=== PATIENT | female | born 1940 | race Caucasian/White ===

== ENCOUNTER → 2016-10-24 | Outpatient (CLI) | payer OTHER | LOC: FIMAGING 12:32 | PROVIDERS: ATTEND Internal Medicine | DX: Z12.31 Encounter for screening mammogram for malignant neoplasm of breast (principal); Z80.3 Family history of malignant neoplasm of breast | CPT/HCPCS: G0202 ==

== ENCOUNTER → 2016-11-25 | Outpatient (CLI) | payer OTHER | LOC: BMCIMAGING 10:50 | PROVIDERS: ATTEND Physician Assistant Medical | DX: Z13.820 Encounter for screening for osteoporosis (principal); M85.80 Other specified disorders of bone density and structure, unspecified site ==

== ENCOUNTER → 2017-03-25 | Outpatient (CLI) | payer OTHER | LOC: BMCLAB 08:47 | PROVIDERS: ATTEND Physician Assistant Medical | DX: R42 Dizziness and giddiness (principal) ==

== ENCOUNTER → 2017-10-28 | Outpatient (CLI) | payer OTHER | LOC: FIMAGING 10:03 | PROVIDERS: ATTEND Internal Medicine | DX: Z12.31 Encounter for screening mammogram for malignant neoplasm of breast (principal); Z80.3 Family history of malignant neoplasm of breast ==

== ENCOUNTER 2018-03-12 05:37 | Inpatient (IN) | payer OTHER ==
[2018-03-12] MEDS ORDERED: ACETAMINOPHEN 500 MG TAB PO ONE (05:43)
[2018-03-12] MEDS ORDERED: ceFAZolin 2 GM/DEXTROSE 100 ML IV ONE (05:43)
[2018-03-12] MEDS ORDERED: GABAPENTIN 300 MG CAP PO ONE (05:43)
[2018-03-12] MEDS ORDERED: LR 1,000 ML IV ONE (05:44)
[2018-03-12] MEDS ORDERED: BUPIVACAINE 0.25% 30 ML SDV ONE (06:24)
[2018-03-12] MEDS ORDERED: POVIDONE-IODINE 30 GM OINTTUBE TP ONE (06:24)
[2018-03-12] MEDS ORDERED: CHLORHEXIDINE GLUC HIBICLENS 118 ML BTL TP ONE (06:24)
[2018-03-12] MEDS ORDERED: EPINEPHrine 1 MG/ML INJ ONE (06:24)
[2018-03-12] MEDS ORDERED: THROMBIN (BOVINE) 20,000 UNIT VIAL TP ONE ×2 (06:24→09:05)
[2018-03-12] MEDS ORDERED: BACITRACIN ZINC 0.5 OZ OINTTUBE TP ONE (06:24)
[2018-03-12] MEDS ORDERED: BACITRACIN 50,000 UNITS/10 ML SYR IRR ONE (06:25)
--- NOTE | 2018-03-12 06:52 | PDHPUP ---
History & Physical Update H&P update statement: This history and physical update is based on an assessment of the patient which was completed after admission or registration (within 24 hours), but prior to the surgery/procedure. H&P update: H&P reviewed & patient examined, no change in patient's condition since H&P completed
--- NOTE | 2018-03-12 07:06 | PDANEPAE ---
ANE History of Present Illness C$-C7 A/P lif for DJD ANE Past Medical History - Cardiovascular History Hx Hypertension: No Hx Arrhythmias: No Hx Chest Pain: No Hx Coronary Artery / Peripheral Vascular Disease: No Hx CHF / Valvular Disease: No Hx Palpitations: No - Pulmonary History Hx COPD: No Hx Asthma/Reactive Airway Disease: No Hx Recent Upper Respiratory Infection: No Hx Oxygen in Use at Home: No Hx Sleep Apnea: No Sleep Apnea Screening Result - Last Documented: Negative - Neurologic History Hx Cerebrovascular Accident: No Hx Seizures: No Hx Dementia: No - Endocrine History Hx Diabetes: No - Renal History Hx Renal Disorders: No - Liver History Hx Hepatic Disorders: No - Neurological & Psychiatric Hx Hx Neurological and Psychiatric Disorders: No - Cancer History Hx Cancer: No - Congenital Disorder History Hx Congenital Disorders: No - GI History Hx Gastrointestinal Disorders: No - Other Health History Other Health History: NEG - Surgical History Prior Surgeries: BACK SURGERY- LUMBAR LAMINECTOMY. EPIDURAL INJS FOR PAIN. R SHOULDER. RTC TREVIN X3. CATARACTS. BUNIONECTOMY. CARPAL TUNNEL TREVIN ANE Review of Systems Review of Systems: - Exercise capacity METS (RN): 4 METS ANE Patient History - Allergies Allergies/Adverse Reactions: No Known Allergies Allergy (Verified 02/11/18 11:23) - Home Medications Home Medications: Ascorbic Acid [Vitamin C 500 mg (*)] 1,000 mg PO DAILY 02/11/18 [Last Taken ] Atorvastatin Calcium [Lipitor 20 mg (*)] 20 mg PO HS 02/11/18 [Last Taken ] Calcium Carbonate [Oyster Shell Calcium 500 mg (*)] 500 mg PO DAILY 02/11/18 [ Last Taken 03/11/18] Cholecalciferol Vit D3 [Vitamin D3 (*)] 1,000 units PO DAILY 02/11/18 [Last Taken 03/02/18] Herbals/Supplements -Info Only 1 ea PO DAILY 02/11/18 [Last Taken 03/11/18] Ibuprofen [Motrin (*)] 200 mg PO HS PRN 02/11/18 [Last Taken 03/02/18] Melatonin [Melatonin 3 MG (*)] 3 mg PO HS PRN 02/11/18 [Last Taken 03/11/18] Multivitamins [Multivitamin (*)] 1 each PO DAILY 02/11/18 [Last Taken 03/02/18] - NPO status NPO Since - Liquids (Date): 03/11/18 NPO Since - Liquids (Time): 19:00 NPO Since - Solids (Date): 03/11/18 NPO Since - Solids (Time): 19:00 - Smoking Hx Smoking Status: Never smoked ANE Labs/Vital Signs - Vital Signs Blood Pressure: 119/65 Heart Rate: 78 Respiratory Rate: 16 O2 Sat (%): 96 Height: 162.56 cm Weight: 68.039 kg ANE Physical Exam - Airway Neck exam: FROM Mallampati Score: Class 1 Mouth exam: normal dental/mouth exam - Pulmonary Pulmonary: no respiratory distress, no rales or rhonchi - Cardiovascular Cardiovascular: regular rate and rhythym, no murmur, rub, or gallop - ASA Status ASA Status: II ANE Anesthesia Plan Anesthesia Plan: general endotracheal anesthesia Total IV Anesthesia: Yes
[2018-03-12] MEDS ORDERED: MIDAZOLAM 2 MG/2 ML VIAL IVP ONE (07:07)
[2018-03-12] MEDS ORDERED: MIDAZOLAM 2 MG/2 ML VIAL ONE (07:08)
[2018-03-12] MEDS ORDERED: REMIFENTANIL HCL 1 MG VIAL ONE ×3 (07:10→08:42)
[2018-03-12] MEDS ORDERED: PROPOFOL/EMULSION 500 MG/50 ML BOTTLE IV ONE ×6 (07:10→10:23)
[2018-03-12] MEDS ORDERED: PROPOFOL 200 MG/20 ML VIAL ONE (07:19)
[2018-03-12] MEDS ORDERED: TRANEXAMIC ACID 1,000 MG/10 ML VIAL ONE (08:56)
[2018-03-12] MEDS ORDERED: SURGIFLO MATRIX KIT WITH THROMBIN 8 ML TP ONE (08:57)
--- NOTE | 2018-03-12 10:44 | GOP ---
DATE OF OPERATION: 03/12/2018 SURGEON: Turner Rivas MD NEUROSURGEON: Turner Rivas MD. SOLE LAYER HAND: Bronson Marquez PA-C. ANESTHESIA: General endotracheal. 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 Progressive myelopathic symptoms. POSTOPERATIVE DIAGNOSIS: Multilevel cervical spondylitic myelopathy with severe cervical central can al stenosis and spinal cord compression. Progressive myelopathic symptoms. PROCEDURE PERFORMED: Complete C4-5, C5-6, and C6-7 anterior cervical diskectomy and arthrodesis with 3 structural polyetheretherketone interbody spacers and local autograft. Partial C5 and C6 vertebra l corpectomies. Placement of a 63 mm LnK CastleLoc-P anterior cervical plate from C4-C7 with self-dr illing screws. Use of intraoperative microscopy and fluoroscopy. FINDINGS: ESTIMATED BLOOD LOSS: Estimated 50 cc. INDICATIONS: The patient is a 77-year-old woman with progressive myelopathic symptoms and multilevel cervical spondylosis, stenosis, and spinal cord compression. She presents now for anterior and post erior cervical decompression and stabilization. DESCRIPTION OF PROCEDURE: After informed consent was obtained, the patient was taken to the operatin g room and placed in the supine position with the head in the halter retractor system. The anterior cervical region was prepped and draped in sterile fashion. After fluoroscopic localization of the co rrect level, the subcutaneous and intramuscular tissues were infiltrated with local anesthesia. A ho rizontal incision was then created at the level of the C5-6 interspace. This was carried through the platysmal layer using the monopolar electrocautery and carried in the avascular plane between the st ernocleidomastoid and carotid sheath laterally and the strap muscles, trachea, and esophagus medially down to the prevertebral fascia which was carefully incised with Metzenbaum scissors. The C4-5, C5- 6, and C6-7 interspaces were identified and re-verified using intraoperative fluoroscopy. The large osteophytes were carefully removed and harvested for local autograft. The [place] distraction pins we re carefully inserted, first at C4-5, then at C5-6, and then C6-7 during which time a slight amount o f distraction was created across each interspace and complete diskectomies were performed with remova l of the posterior longitudinal ligament and bilateral foraminotomies were performed at each level. There were large osteophytes projecting posteriorly as they were anterior and these were carefully re moved and drilled out and there was significant irregularity in the disk spaces which also required a n extensive amount of drilling. Due to the significant amount of drilling of the superior and inferi or endplates of C5 and C6, approximately 50% of the vertebral bodies were removed for partial C5 and C6 vertebral corpectomies. Following excellent decompression at each of the 3 interspaces structural PEEK interbody spacers were placed at C4-5, C5-6, and C6-7 and the distraction was removed. An appr opriately sized 63 mm LnK CastleLoc-P anterior cervical plate was then placed and secured with self-d rilling screws under fluoroscopic image guidance from C4 to C7. Following re-verification of good po sition of the plate, screws, and interbody spacers using biplanar fluoroscopy, the locking mechanisms were engaged. The wound was copiously irrigated and re-infiltrated with local anesthesia. The mark ining local autograft was gently packed into the anterior hole of the plate at the C4-5 and C6-7 leve ls. A drain was placed and the wound was closed in a layered fashion using interrupted Vicryl suture s, followed by Steri-Strips on the skin. COMPLICATIONS: None. DISPOSITION: The patient remained intubated and was repositioned posterior for the posterior portion of the procedure. /[id number]/MODL
[2018-03-12] MEDS ORDERED: ceFAZolin 1 GM VIAL ONE ×2 (10:52)
[2018-03-12] MEDS ORDERED: ONDANSETRON 4 MG/2 ML VIAL IVP PRN ×2 (11:32→11:54)
[2018-03-12] MEDS ORDERED: DIAZEPAM 5 MG/ML 1 ML SYR IVP PRN (11:32)
[2018-03-12] MEDS ORDERED: ALBUTEROL 3 ML DEYVIAL IH PRN (11:32)
[2018-03-12] MEDS ORDERED: MEPERIDINE 25 MG/0.5 ML AMP IVP PRN (11:32)
[2018-03-12] MEDS ORDERED: PROMETHAZINE HCL 25 MG/ML INJ IVP PRN (11:32)
[2018-03-12] MEDS ORDERED: NALOXONE HCL 0.4 MG/ML INJ IVP PRN (11:32)
[2018-03-12] MEDS ORDERED: LR 500 ML IV PRN (11:32)
[2018-03-12] MEDS ORDERED: diphenhydrAMINE 25 MG CAP PO PRN (11:54)
[2018-03-12] MEDS ORDERED: LACTULOSE 20 GM/30 ML UDCUP PO PRN (11:54)
[2018-03-12] MEDS ORDERED: ONDANSETRON DISINTEGRATING 4 MG TAB PO PRN (11:54)
[2018-03-12] MEDS ORDERED: MAGNESIUM HYDROXIDE 30 ML UDCUP PO PRN (11:54)
[2018-03-12] MEDS ORDERED: BISACODYL 10 MG SUPP PR PRN (11:54)
--- NOTE | 2018-03-12 11:59 | SOAPPROG ---
SOAP Progress Note Assessment/Plan: Assessment: 77 yo F sp C4-7 ACDF and C4-7 posterior decompression and fusion Plan: stable hard collar at all times LALY x 2 x-rays in am please call with neuro changes 03/12/18 11:58 Subjective: + neck pain, no arm pain Objective: Vital Signs Temp Pulse Resp BP Pulse Ox 36.6 C 78 16 119/65 96 03/12/18 05:59 03/12/18 07:07 03/12/18 07:07 03/12/18 07:07 03/12/18 07:07 somnolent no facial droop, EOMI TONEY x4 + light touch ICD10 Worksheet Patient Problems: Problems Problem Status Onset Fusion of spine of cervical region Acute - ICD10 Problem Qualifiers (1) Fusion of spine of cervical region
[2018-03-12] MEDS ORDERED: NS 1,000 ML IV SCH (12:00)
--- NOTE | 2018-03-12 12:11 | POSTANESTH ---
Post Anesthetic Evaluation Cardiovascular Status: Normal, Stable Respiratory Status: Normal, Stable Level of Consciousness/Mental Status: Can Participate in Eval, Moderately Sleepy Pain Control: Adequate, Prn Tx Ordered Nausea/Vomiting Control: Adequate, Prn Tx Ordered Complications Possibly Related to Anesthesia: None Noted
[2018-03-12] MEDS ORDERED: fentaNYL 100 MCG/2 ML INJ ONE (12:38)
[2018-03-12] MEDS: fentaNYL 100 MCG/2 ML INJ IVP PRN ×2 (12:40→12:48)
[2018-03-12] MEDS ORDERED: HYDROmorphONE/DILAUDID 2 MG/ML INJ ONE (12:58)
--- NOTE | 2018-03-12 12:59 | PDMN ---
Medical Necessity Medical necessity: 77 yo s/p C4/7 cervical decompress & fusion, posterior, CPT 03944 MCG 330 posterior cervical fusion [facility] only
[2018-03-12] MEDS: HYDROmorphONE/DILAUDID 2 MG/ML INJ IVP PRN ×3 (13:11→14:04)
[2018-03-12] MEDS ORDERED: DIAZEPAM 5 MG/ML 1 ML SYR ONE (14:06)
[2018-03-12] MEDS: POLYETHYLENE GLYCOL 3350 17 GM PKT PO SCH ×2 (16:50→21:44)
[2018-03-12] MEDS: ceFAZolin 2 GM/DEXTROSE 100 ML IV SCH (17:05)
[2018-03-12] MEDS: oxyCODONE IR 5 MG TAB PO PRN ×2 (17:34→21:48)
[2018-03-12] MEDS: METHOCARBAMOL 750 MG TAB PO PRN (17:34)
[2018-03-12] MEDS: SENNOSIDES/DOCUSATE SODIUM TAB PO SCH (20:10)
[2018-03-12] MEDS: ATORVASTATIN CALCIUM 20 MG TAB PO SCH (21:48)
[2018-03-12] MEDS: FAMOTIDINE 20 MG TAB PO SCH (21:49)
[2018-03-13] MEDS: ceFAZolin 2 GM/DEXTROSE 100 ML IV SCH (00:04)
[2018-03-13] MEDS: METHOCARBAMOL 750 MG TAB PO PRN ×3 (00:04→16:11)
[2018-03-13] MEDS: oxyCODONE IR 5 MG TAB PO PRN ×6 (00:53→19:25)
[2018-03-13 05:35] LABS: PLATELET COUNT 175 10^3/uL (150-400)
--- NOTE | 2018-03-13 07:53 | SOAPPROG ---
SOAP Progress Note Assessment/Plan: Assessment: POD #1 sp C4-7 ant/post fusion Doing well Pain controlled Na 132 Plan: repeat Na today Continue Hard collar Continue ant/post LALY drains xrays today to eval cervical hardware PT/OT/ST start Salt tabs for low Na+ 03/13/18 07:50 03/13/18 07:53 Subjective: Awake, alert, comfortable. Has new mild left hand paresthesias that improve when she sits up. OTherwise no numbness, tingling or weakness Objective: Vital Signs Temp Pulse Resp BP Pulse Ox 36.9 C 88 16 147/74 H 95 03/13/18 07:31 03/13/18 07:31 03/13/18 07:31 03/13/18 07:31 03/13/18 07:31 Laboratory Results 03/13/18 05:18 03/13/18 05:18 03/12/18 03/13/18 03/14/18 05:59 05:59 05:59 Intake Total 1505 720 Output Total 2720 150 Balance -1215 570 Neuro: A+Ox4 speech clear follows command 5/5 bilateral upper/lower ext sens +Lt Ant LALY: 80 ml Post LALY: 190 ml ICD10 Worksheet Patient Problems: Problems Problem Status Onset Fusion of spine of cervical region Acute
[2018-03-13] MEDS: SENNOSIDES/DOCUSATE SODIUM TAB PO SCH ×2 (09:12→21:50)
[2018-03-13] MEDS: SODIUM CHLORIDE 1,000 MG TAB PO SCH ×3 (09:12→18:17)
[2018-03-13] MEDS: POLYETHYLENE GLYCOL 3350 17 GM PKT PO SCH ×3 (09:12→21:50)
[2018-03-13] MEDS: FAMOTIDINE 20 MG TAB PO SCH ×2 (09:12→20:56)
--- NOTE | 2018-03-13 15:05 | ASMTCMCOM ---
CM Note CM Note Notes: Pt had planned surgery, resides with spouse. Pt was pre-arranged with [facility] who have protocol with MD office. OT/PT rec home, FRAME BANDER rec pending. Pt does want Denisa IQBAL with [facility] visited with pt today. D/c plan of care: home with [facility] Date Signed: 03/13/2018 03:05 PM Electronically Signed By:JAMAL Velarde
[2018-03-13] MEDS: ATORVASTATIN CALCIUM 20 MG TAB PO SCH (20:56)
[2018-03-14] MEDS: oxyCODONE IR 5 MG TAB PO PRN ×5 (00:25→20:37)
[2018-03-14] MEDS: METHOCARBAMOL 750 MG TAB PO PRN ×3 (03:21→18:10)
--- NOTE | 2018-03-14 08:37 | NEUSURGPN ---
Date of Surgery: 03/12/18 Post Op Day: 2 Assessment/Plan: Assessment: 77 yr old s/p ACDF C4-7 with PSF C4-7 for cervical stenosis Plan: -Leave LALY in today, output 215 -Post op xrays pending -PT/OT/ST eval and treat -Case management work on dispo options pending therapies recs -Wear hard collar -Ok to start Lovenox today -Discussed patient with Dr Domingo Please call neurosurgery with any questions/concerns Subjective: Expected posterior neck pain, no arm pain Objective: AxO x3 LUCIAN EOMI ODOM x4 5/5 BUE, BLE Dressing/incision x2 CDI Collar in place Neuro Check Frequency: per routine Urinary Catheter in Place: No - Physician Discussed Patient with : Evelyn Neurosurgery Physical Exam - Vitals, I&O, Labs I and O 03/13/18 03/14/18 03/15/18 05:59 05:59 05:59 Intake Total 1505 1720 300 Output Total 2720 2315 600 Balance -1215 -595 -300 Weight 68.039 kg Intake: Oral (ml) 5 1000 300 IV Intake (ml) 1500 720 Output: Urine (ml) 2350 2050 600 Catheter 2350 150 Toilet 1900 600 Estimated Blood Loss (ml) 100 LALY Drain Output (ml) 270 265 #1 Anterior Neck 80 50 #2 Posterior Neck David 190 215 Mayen Other: Intake Quantity Yes Yes Sufficient Output Comment Toilet small pieces nothing solid or liquid, looked like seeds Number of Voids Toilet 1 1 Number of Stools Toilet 1 Number of Emesis 1 Occurrences Vital Signs Temp Pulse Resp BP Pulse Ox 36.5 C 88 16 148/79 H 93 03/14/18 08:00 03/14/18 08:00 03/14/18 08:00 03/14/18 08:00 03/14/18 08:00 Laboratory Results 03/13/18 05:18 03/14/18 04:26 ICD10 Worksheet Patient Problems: Problems Problem Status Onset Fusion of spine of cervical region Acute
[2018-03-14] MEDS: SENNOSIDES/DOCUSATE SODIUM TAB PO SCH ×2 (09:46→23:04)
[2018-03-14] MEDS: SODIUM CHLORIDE 1,000 MG TAB PO SCH ×3 (09:46→18:10)
[2018-03-14] MEDS: FAMOTIDINE 20 MG TAB PO SCH ×2 (09:47→21:04)
[2018-03-14] MEDS: POLYETHYLENE GLYCOL 3350 17 GM PKT PO SCH ×2 (10:59→17:30)
[2018-03-14] MEDS: ATORVASTATIN CALCIUM 20 MG TAB PO SCH (21:04)
[2018-03-15] MEDS: METHOCARBAMOL 750 MG TAB PO PRN ×4 (00:55→19:21)
[2018-03-15] MEDS: MELATONIN 3 MG TAB PO PRN ×2 (00:55→23:22)
[2018-03-15] MEDS: oxyCODONE IR 5 MG TAB PO PRN ×4 (02:51→23:16)
[2018-03-15] MEDS: SODIUM CHLORIDE 1,000 MG TAB PO SCH ×3 (09:00→18:37)
[2018-03-15] MEDS: FAMOTIDINE 20 MG TAB PO SCH ×2 (09:00→20:08)
[2018-03-15] MEDS: SENNOSIDES/DOCUSATE SODIUM TAB PO SCH ×2 (09:00→20:08)
[2018-03-15] MEDS: ENOXAPARIN 40 MG/0.4 ML SYR SC SCH (09:04)
--- NOTE | 2018-03-15 09:40 | NEUSURGPN ---
Date of Surgery: 03/12/18 Post Op Day: 3 Assessment/Plan: Assessment: 77 yr old s/p ACDF C4-7 with PSF C4-7 for cervical stenosis POD#3 Plan: -Leave JPs in today, output 30ml in both anterior and posterior -Post op xrays show stable hardware placement -PT/OT/ST eval and treat -Case management work on dispo options pending therapies recs, likely dc Friday is pain controlled -Wear hard collar -DVT ppx SCDs/Lovenox -Discussed patient with Dr Domingo Please call neurosurgery with any questions/concerns Subjective: Sitting in chair, wants to shower Objective: AxO x4 PERRLA/EOMI MAEx4 5/ BUE, BLE Incision x2 CDI JPs patent Neuro Check Frequency: per routine Urinary Catheter in Place: No - Physician Discussed Patient with : Evelyn Neurosurgery Physical Exam - Vitals, I&O, Labs I and O 03/14/18 03/15/18 03/16/18 05:59 05:59 05:59 Intake Total 1720 300 500 Output Total 2315 2685 180 Balance -595 -2385 320 Intake: Oral (ml) 1000 300 500 IV Intake (ml) 720 Output: Urine (ml) 2050 2600 150 Catheter 150 Toilet 1900 2600 150 LALY Drain Output (ml) 265 85 30 #1 Anterior Neck 50 10 #2 Posterior Neck David 215 85 20 Mayen Other: Intake Quantity Yes Yes Yes Sufficient Output Comment Toilet small pieces nothing solid or liquid, looked like seeds Number of Voids Toilet 1 1 Number of Stools Toilet 1 1 Number of Emesis 1 Occurrences Vital Signs Temp Pulse Resp BP Pulse Ox 36.8 C 87 19 123/67 H 92 03/15/18 07:42 03/15/18 07:42 03/15/18 07:42 03/15/18 07:42 03/15/18 07:42 Laboratory Results 03/13/18 05:18 03/14/18 04:26 ICD10 Worksheet Patient Problems: Problems Problem Status Onset Fusion of spine of cervical region Acute
[2018-03-15] MEDS: ATORVASTATIN CALCIUM 20 MG TAB PO SCH (20:08)
[2018-03-16] MEDS: METHOCARBAMOL 750 MG TAB PO PRN ×2 (04:39→12:40)
[2018-03-16] MEDS: oxyCODONE IR 5 MG TAB PO PRN ×2 (05:04→09:14)
--- NOTE | 2018-03-16 07:31 | SOAPPROG ---
SOAP Progress Note Assessment/Plan: Assessment: 77 yo F POD#4 C4-7 ACDF and C4-7 posterior decompression and fusion Plan: stable and doing well overall :) hard collar at all times TIMOTHY x 2, remove anterior timothy today PT/OT x-rays look great try to dc home later today please call with neuro changes discussed with Dr Domingo 03/12/18 11:58 03/16/18 07:28 Subjective: neck pain improving, new paresthesias in both thumbs/index fingers. no weakness. Objective: Vital Signs Temp Pulse Resp BP Pulse Ox 36.6 C 88 16 146/82 H 94 03/16/18 04:36 03/16/18 04:36 03/16/18 04:36 03/16/18 04:36 03/16/18 04:36 Laboratory Results 03/13/18 05:18 03/14/18 04:26 03/15/18 03/16/18 03/17/18 05:59 05:59 05:59 Intake Total 300 1350 Output Total 2685 1345 Balance -2385 5 AAOx4, +FC PERRL no facial droop 5/5 + light touch C/D/I x 2 ICD10 Worksheet Patient Problems: Problems Problem Status Onset Fusion of spine of cervical region Acute - ICD10 Problem Qualifiers (1) Fusion of spine of cervical region
[2018-03-16 07:38] VITALS: BP 135/77
[2018-03-16] MEDS: ENOXAPARIN 40 MG/0.4 ML SYR SC SCH (07:56)
[2018-03-16] MEDS: SODIUM CHLORIDE 1,000 MG TAB PO SCH ×2 (07:58→12:39)
[2018-03-16] MEDS: SENNOSIDES/DOCUSATE SODIUM TAB PO SCH (07:58)
[2018-03-16] MEDS: FAMOTIDINE 20 MG TAB PO SCH (07:58)
[2018-03-16] MEDS: HYDROCODONE/APAP 10/325 TAB PO PRN ×2 (13:13→14:13)
--- NOTE | 2018-03-16 16:17 | ASMTLACE ---
LACE Length of stay for Answers: 4-6 days current admission Acuity / Level of Answers: Yes Care: Did the patient have an inpatient admission? Comorbidities - select Answers: Other Notes: HLD all that apply # of Emergency department Answers: 0 visits in the last 6 months Score: 8 Date Signed: 03/16/2018 04:17 PM Electronically Signed By:Luisa Aj LCSW
--- NOTE | 2018-03-16 16:26 | ASMTDCNOTE ---
Case Management Discharge Discharge Order Complete? Answers: Yes Patient to Obtain Answers: Independently Medications Transportation Arranged Answers: Family/Friends Family Notified Answers: Yes Notes: Kaia Discharge Comments Notes: Patient to discharge home today. PT/OT state patient can d/c home, no needs. [facility] stopped by to say they thought she was going to be recommended for services. Encouraged her to meet with the patient after the patient has been home a couple of days and if she feels she does need them her PCP can write the orders for services. Denisa Vaughan will follow up. No further needs. Date Signed: 03/16/2018 04:25 PM Electronically Signed By:Luisa Aj LCSW
== END 2018-03-16 16:32 | disposition home or self-care (01) | DRG 473 ==
LOC: F3N 05:37
PROVIDERS: ADMIT Neurological Surgery; ATTEND Neurological Surgery
DX: M47.12 Other spondylosis with myelopathy, cervical region (principal)
CPT/HCPCS: 92526-GN; 92610-GN; 97116-GP; 97161-GP; 97166-GO; 97530-GP; 97535-GO; C1713; J0171; J0690; J1170; J1650; J2250; J2704; J3010; J3360

== ENCOUNTER 2018-03-17 15:41 | Observation (INO) | payer OTHER ==
--- NOTE | 2018-03-17 16:47 | EDPHY ---
H & P Time Seen by Provider: 03/17/18 16:47 HPI/ROS: CHIEF COMPLAINT: Low oxygen level at home HISTORY OF PRESENT ILLNESS: The patient had C4 through 7 ACDF with posterior component on March 12 and was discharged on March 16. Patient did describe today going up down the stairs at home which made her short of breath and she describes "panting" when the home health nurse took her oxygen saturation found it was low. She currently does not complain of any shortness of breath, no chest pain, no leg swelling, no hemoptysis. She has little bit of neck discomfort from her surgery but otherwise feels asymptomatic. REVIEW OF SYSTEMS: Eye: no change in vision ENT: no sore throat Cardiac: no chest pain or syncope Pulmonary: HPI Abdomen: no vomiting, diarrhea, abdominal pain Musculoskeletal: HPI Skin: no rash Neuro: no headache Constitutional: no fever : no urinary symptoms A comprehensive 10 point review of systems is otherwise negative aside from elements mentioned in the history of present illness. PAST MEDICAL HISTORY: Spinal fusion as noted above, shoulder surgeries, carpal tunnel Social history: Nonsmoker General Appearance: Alert and conversant, cooperative. Eyes: No scleral icterus. ENT, Mouth: Neck in a collar, slightly dry mucous membranes. Respiratory: Normal respiratory effort, breath sounds equal, lungs are clear to auscultation. Speaks in full sentences. Cardiovascular: Regular rate and rhythm. Gastrointestinal: Abdomen is soft and non tender. Neurological: Alert, face symmetric, normal motor and sensory in extremities. Ambulatory. Skin: Warm and dry, no rashes. Cervical incision is not examined. Musculoskeletal: No peripheral edema. No calf tenderness. Psychiatric: Not agitated. Emergency Department course/MDM: Patient requested her sodium be checked. Plan for chemistry and D-dimer. Low pretest probability for pulmonary embolism. 174: D-dimer elevated, CTA discussed and consented with the patient. 1821: CTA shows bilateral subsegmental pulmonary emboli per Dr. Yousif. Results discussed with the patient, anticoagulation discussed and consented. Lovenox 1 milligram/kilogram subcutaneous. Admission hospitalist, discussed with on-call neurosurgeon Dr. Blackman 1839 who agrees with anticoagulation but requested unfractionated heparin bolus and drip instead of alternatives. Smoking Status: Never smoked Constitutional: Initial Vital Signs Temperature (C) 36.8 C 03/17/18 15:50 Heart Rate 98 03/17/18 15:50 Respiratory Rate 16 03/17/18 15:50 Blood Pressure 135/85 H 03/17/18 15:50 O2 Sat (%) 92 03/17/18 15:50 O2 Delivery Mode Nasal Cannula O2 (L/minute) 1 Allergies/Adverse Reactions: oxycodone Allergy (Verified 03/17/18 15:49) Home Medications: Medication Instructions Recorded Ascorbic Acid [Vitamin C 500 mg 1,000 mg PO DAILY 02/11/18 (*)] Atorvastatin Calcium [Lipitor 20 20 mg PO HS 02/11/18 mg (*)] Calcium Carbonate [Oyster Shell 500 mg PO DAILY 02/11/18 Calcium 500 mg (*)] Cholecalciferol Vit D3 [Vitamin D3 1,000 units PO DAILY 02/11/18 (*)] Herbals/Supplements -Info Only 1 ea PO DAILY 02/11/18 Melatonin [Melatonin 3 MG (*)] 3 mg PO HS PRN 02/11/18 Multivitamins [Multivitamin (*)] 1 each PO DAILY 02/11/18 HYDROcodone/APAP 10/325 [[place] 1 - 2 tab PO Q4 PRN tab 03/16/18 10/325 (*)] Methocarbamol [Robaxin 750 mg (*)] 750 mg PO QID PRN tab 03/16/18 Medical Decision Making - Diagnostics Imaging Results: Imaging Impressions Chest/Thorax CTA 03/17/18 17:50 Impression: 1. Small volume subsegmental bilateral pulmonary emboli. 2. Fibrotic bands or subsegmental atelectasis right middle lobe and both lower lobes posteriorly. Findings discussed with Yassine Aldana M.D. at 18:21 hour, 03/17/2018. Imaging: Discussed imaging studies w/ call center consultant Radiologist Consult/Admit Bed Type: Dr. Ryder Critical Care Time: Critical care time spent by me, Dr. Aldana, exclusively with the care of this patient was 30 minutes, exclusive of PA or ELECTRONICS ENGINEERING TECHNICIAN time and exclusive of separate procedures. The organ system at risk was pulmonary and I ordered specialist consultation, multiple diagnostics, IV unfractionated heparin bolus and drip to stabilize the patient and prevent worsening of the patient's condition. - Data Points Laboratory Results: Laboratory Results 03/17/18 17:04 03/17/18 17:04 03/17/18 03/17/18 03/17/18 17:04 17:04 17:04 WBC 7.75 10^3/uL 10^3/uL (3.80-9.50) RBC 4.15 10^6/uL L 10^6/uL (4.18-5.33) Hgb 12.2 g/dL L g/dL (12.6-16.3) Hct 36.7 % L % (38.0-47.0) MCV 88.4 fL fL (81.5-99.8) MCH 29.4 pg pg (27.9-34.1) MCHC 33.2 g/dL g/dL (32.4-36.7) RDW 12.4 % % (11.5-15.2) Plt Count 256 10^3/uL 10^3/uL (150-400) MPV 10.0 fL fL (8.7-11.7) Neut % (Auto) 76.4 % H % (39.3-74.2) Lymph % (Auto) 11.4 % L % (15.0-45.0) Crisp % (Auto) 9.7 % % (4.5-13.0) Eos % (Auto) 1.7 % % (0.6-7.6) Baso % (Auto) 0.5 % % (0.3-1.7) Nucleat RBC Rel Count 0.0 % % (0.0-0.2) Absolute Neuts (auto) 5.93 10^3/uL 10^3/uL (1.70-6.50) Absolute Lymphs (auto) 0.88 10^3/uL L 10^3/uL (1.00-3.00) Absolute Monos (auto) 0.75 10^3/uL 10^3/uL (0.30-0.80) Absolute Eos (auto) 0.13 10^3/uL 10^3/uL (0.03-0.40) Absolute Basos (auto) 0.04 10^3/uL 10^3/uL (0.02-0.10) Absolute Nucleated RBC 0.00 10^3/uL 10^3/uL (0-0.01) Immature Gran % 0.3 % % (0.0-1.1) Immature Gran # 0.02 10^3/uL 10^3/uL (0.00-0.10) D-Dimer 3.87 ug/mLFEU H ug/mLFEU (0.00-0.50) Sodium 131 mEq/L L mEq/L (135-145) Potassium 4.2 mEq/L mEq/L (3.5-5.2) Chloride 97 mEq/L mEq/L (97-110) Carbon Dioxide 28 mEq/l mEq/l (22-31) Anion Gap 6 mEq/L mEq/L (6-14) BUN 14 mg/dL mg/dL (7-23) Creatinine 0.7 mg/dL mg/dL (0.6-1.0) Estimated GFR > 60 Glucose 125 mg/dL H mg/dL (70-100) Calcium 9.1 mg/dL mg/dL (8.5-10.4) Medications Given: Discontinued Medications Heparin Sodium (Porcine) (Heparin Injection) 0 unit IVP EDNOW ONE Stop: 03/17/18 18:43 Last Admin: 03/17/18 19:13 Dose: 5,400 units Heparin Sodium (Porcine) (Heparin 50 Units/Ml (Premix)) 500 mls @ 0 mls/hr IV EDNOW ONE; Per Protocol PRN Reason: Protocol Stop: 03/17/18 18:43 Last Admin: 03/17/18 19:14 Dose: 500 mls Departure - Departure Disposition: [facility] Inpatient Acute Clinical Impression: Pulmonary emboli Qualifiers: Pulmonary embolism type: other Chronicity: acute Acute cor pulmonale presence: without acute cor pulmonale Qualified Code(s): I26.99 - Other pulmonary embolism without acute cor pulmonale Condition: Good
[2018-03-17 17:30] LABS: PLATELET COUNT 256 10^3/uL (150-400)
[2018-03-17] MEDS ORDERED: IOHEXOL 350mgI/ML (OMNIPAQUE) 150 ML BTL IV ONE (17:54)
[2018-03-17] MEDS ORDERED: ENOXAPARIN 80 MG/0.8 ML SYR SC ONE (18:26)
[2018-03-17] MEDS ORDERED: HEPARIN/DEXTROSE 500 ML IV ONE (18:42)
[2018-03-17] MEDS ORDERED: HEPARIN 10,000 UNIT/10 ML MDV (1,000 UNIT/ML) IVP ONE (18:42)
[2018-03-17 19:16] LABS: PROTIME(PATIENT) 13.4 SEC (12.0-15.0)
[2018-03-17] MEDS ORDERED: ACETAMINOPHEN 325 MG TAB PO PRN (20:22)
[2018-03-17] MEDS ORDERED: ONDANSETRON 4 MG/2 ML VIAL IVP PRN (20:22)
[2018-03-17] MEDS ORDERED: HEPARIN 10,000 UNIT/10 ML MDV (1,000 UNIT/ML) IVP PRN (20:23)
[2018-03-17] MEDS ORDERED: MELATONIN 3 MG TAB PO PRN (20:24)
[2018-03-17] MEDS ORDERED: HEPARIN/DEXTROSE 500 ML IV SCH (20:30)
--- NOTE | 2018-03-17 20:37 | GHP ---
[f rep st] HISTORY AND PHYSICAL DATE OF ADMISSION: 03/17/2018 CHIEF COMPLAINT: Shortness of breath. HISTORY OF PRESENT ILLNESS: This is a 77-year-old female, who underwent C4 through [address] Rivas on 03/12/2018, and subsequently discharged from [facility] on . Presents to the emergency department today with shortness of breath. She was evaluated by her home health nurse today who noticed her oxygen saturations were in the 80s. She denies any chest pain. She denies any history of blood clots. She denies any family history of blood clots. PAST MEDICAL HISTORY: Denies. PAST SURGICAL HISTORY: Three rotator cuff surgeries, recent cervical fusion as mentioned in the HPI, lumbar laminectomy, appendectomy. HOME MEDICATIONS: Reviewed. Refer to [employer] for details. ALLERGIES: Oxycodone. SOCIAL HISTORY: She is and lives in [place]. She denies any tobacco or illicit drug use. S he drinks alcohol occasionally. FAMILY HISTORY: Reviewed and noncontributory. Negative for blood clots. REVIEW OF SYSTEMS: Comprehensive 10-point review of systems was done and is negative, except for as mentioned in the HPI. PHYSICAL EXAMINATION: VITAL SIGNS: Blood pressure 134/73, pulse of 83, respiratory rate 18, O2 satu ration 95% on 1 L, temperature afebrile. GENERAL: No acute distress. HEAD: Normocephalic, atrauma tic. EYES: PERRLA. Sclerae anicteric. NECK: In a cervical collar. CARDIOVASCULAR: S1, S2. No murmurs, rubs, clicks, gallops. No JVD. No lower extremity edema. PULMONARY: Lungs are clear. No wheezes, rales, or rhonchi. ABDOMEN: Soft, nontender, nondistended. No guarding or rebound tender ness. Normoactive bowel sounds. EXTREMITIES: No clubbing or cyanosis. NEURO: Cranial nerves 2-12 grossly intact. No focal motor/sensory deficits. Moves all extremities. SKIN: Clear. No rashes. DIAGNOSTICS: WBC 7.75, hemoglobin 12.2, hematocrit 36.7, platelets 256. D-dimer is 3.87. Sodium 13 1, potassium 4.2, chloride 97, CO2 28, BUN 14, creatinine 0.7, glucose 125. CT angio of the chest wa s reviewed showing multiple small volume subsegmental pulmonary emboli as well as fibrotic bands or s ubsegmental atelectasis right middle lobe and both lower lobes posteriorly. ASSESSMENT AND PLAN: This is a 77-year-old female, postoperative day 4 cervical fusion presenting wi th: 1. Acute hypoxemic respiratory failure due to below. 2. Multiple small volume pulmonary emboli. 3. Atelectasis seen on chest CT. 4. Mild hyponatremia. PLAN: 1. Placement on observation. 2. Case was discussed with the patient's neurosurgeon who has recommended that unfractionated hepari n be started. Heparin will be continued per protocol. If her H and H appears to be stable, I think it would be appropriate to place her on either Lovenox or a direct-acting oral anticoagulant and poss ibly discharging in the morning. 3. The patient requests to be full code status. /[id number]/MODL
[2018-03-17] MEDS ORDERED: ATORVASTATIN CALCIUM 20 MG TAB PO SCH (21:00)
[2018-03-17] MEDS: HYDROCODONE/APAP 10/325 TAB PO PRN (21:01)
[2018-03-17] MEDS: METHOCARBAMOL 750 MG TAB PO PRN (21:03)
[2018-03-18 03:23] LABS: PLATELET COUNT 213 10^3/uL (150-400)
[2018-03-18] MEDS: HYDROCODONE/APAP 10/325 TAB PO PRN ×2 (03:28→08:38)
[2018-03-18 08:10] VITALS: BP 137/75
[2018-03-18] MEDS: MULTIVITAMINS 1 EACH TAB PO SCH ×2 (08:38→08:42)
[2018-03-18] MEDS: METHOCARBAMOL 750 MG TAB PO PRN (08:38)
[2018-03-18] MEDS: ASCORBIC ACID 500 MG TAB PO SCH ×2 (08:39→08:42)
[2018-03-18] MEDS: CALCIUM CARBONATE 500 MG TAB PO SCH ×2 (08:39→08:42)
[2018-03-18] MEDS: CHOLECALCIFEROL VIT D3 1,000 UNITS TAB PO SCH ×2 (08:39→08:42)
[2018-03-18] MEDS ORDERED: Herbals/Supplements -Info Only PO SCH (09:00)
--- NOTE | 2018-03-18 10:16 | GCON ---
[f rep st] CONSULTATION NEUROSURGICAL CONSULTATION DATE OF CONSULTATION: 03/18/2018 CHIEF COMPLAINT: Shortness of breath. HISTORY OF PRESENT ILLNESS: Ms Aaron is a 77-year-old female who presented [facility] with severe cervical stenosis. She was taken to the operating room on 03/12/18, by Dr. Rivas where she underwent a C4-7 anterior cervical diskectomy and fusion, with a C4-C7 broadcast operations manager ior cervical decompression and fusion. There were no intraoperative complications, and she was disch arged home in stable condition on 03/16/18. Our office was contacted by [facility] on 03/17/18 , that her oxygen saturations were in the 50s to 80s, even with oxygen. It was recommended she proce ed to the emergency department. She was found to have moderate volume bilateral pulmonary emboli. S he was admitted by the hospitalist and started on heparin. Neurosurgical consultation was requested. She currently has ongoing surgical neck pain. She denies any upper extremity radicular pain. She denies any new weakness, paresthesias, ataxia, bowel or bladder problems. She does have some ongoing mild swallowing difficulty. PAST MEDICAL HISTORY: 1. Cervical stenosis. 2. Hyperlipidemia. PAST SURGICAL HISTORY: 1. Three rotator cuff surgeries. 2. Anterior, posterior cervical fusion. 3. Lumbar laminectomy. 4. Appendectomy. MEDICATIONS PRIOR TO ADMISSION: 1. Vitamin C. 2. Lipitor. 3. Calcium carbonate. 4. Vitamin D3. 5. Herbal supplements. 6. [place]. 7. Melatonin. 8. Robaxin. 9. Multivitamin. ALLERGIES: Oxycodone. FAMILY HISTORY: Patient has no family history of spine problems, or pulmonary emboli. SOCIAL HISTORY: Patient is with grown children. She denies smoking, drinking, or drug use. REVIEW OF SYSTEMS: Negative. PHYSICAL EXAMINATION: GENERAL: Patient is a 77-year-old female lying in bed, in no apparent distres s. HEAD, EYES, EARS, NOSE, AND THROAT: Negative to drainage. EXTREMITIES: [place], warm and dry. NE UROLOGICAL EXAM: Patient is awake, alert, and oriented x4. Pupils equal, round, reactive to light. Extraocular motions are intact. There is no evidence of facial droop. Tongue and uvula are midline . Her motor strength is 5/5 in arms and legs. Her sensation is grossly intact to light touch in her arms and legs. Deep tendon reflexes are 1/4 throughout. Her anterior and posterior cervical incisi ons are clean, dry, and intact. IMPRESSION: This is a 77-year-old female who is postoperative day number six from a C4-7 anterior an d posterior cervical decompression and fusion. She is admitted with bilateral pulmonary emboli. She is neurologically stable. PLAN: All the above discussed in detail with the patient. This patient was seen and examined with [place] At this point in time, and she has been started on heparin, and this is managed by the hospitalist. Dr. Rivas is okay with her starting p.o. anticoagulation, as long as it is reversible, such a s Coumadin. We will follow along for now. Please call with any neurological changes. /[id number]/MODL
[2018-03-18] MEDS ORDERED: ENOXAPARIN 60 MG/0.6 ML SYR SC SCH (10:30)
--- NOTE | 2018-03-18 10:32 | PDIAF ---
- Diagnosis Code Status: Full Code - Medication Management Additional Medication Instructions: Starting lovenox 70mg subcutaneously BID and warfarin 2.5mg daily. Discharge Medications: electronically signed and located in the Home Medication List. - Orders Services needed: Home Care, Registered Nurse, Physical Therapy Home Care Face to Face: I certify that this patient was under my care and that I had the required [id number] encounter meeting the encounter requirements on the discharge day. My findings support the fact that the patient is homebound as defined in Home Care Face to Face Continued: CMS Chapter 7 Medicare Benefits Manual 30.1.1 , The condition of the patient is such that there exists a normal inability to leave home and consequently, leaving home would require a considerable and taxing effort. Additional Instructions: You were diagnosed with a blood clot in your lungs, called a pulmonary embolus. This was likely a complication of your recent surgery. This is treated with anticoagulants (also called "blood thinners"). You are being started on warfarin but this will not be within a therapeutic range for a few days so will need to "bridge" with an injectable blood thinner called Lovenox. You were given a dose of Lovenox in the hospital and should start taking this at home this evening at 10:30pm and take every 12 hours. You should start taking your warfarin (2.5mg tablet) this evening. We have an appointment for you to get your INR checked next Saturday 03/25 at 2pm. Otherwise, no medication changes. Please follow up with Dr Rivas and Dr Negro as planned. - Follow Up Care Current Providers and Referrals: Erum Negro MD [Primary Care Provider] - As per Instructions
--- NOTE | 2018-03-18 10:33 | PDDCSUM ---
Discharge Summary Discharge Summary: Date of Admission: 03/17/2018 Date of Discharge: 03/18/2018 Consultants: neurosurgery Studies: 1. CTA chest Discharge Diagnoses: 1. Acute provoked bilateral PE 2. Recent cervical fusion (C4-C7), still in hard collar 3. HLD Brief Hospital Course: 77yo F with recent cervical fusion by Dr Rivas on 03/12 presented after home health care provider noted her O2 saturations to be upper 70-low 80s on room air. Patient was completely asymptomatic but instructed to come to the ED where CTA of her chest showed bilateral PEs. There was no evidence of right heart strain. PESI score of 96 (age + low O2 sat) indicating intermediate risk. These PEs were felt to be provoked in setting of recent surgery. This is her first thromboembolic event. She was started on a heparin gtt. Neurosurgery was consulted who recommend a reversible anticoagulant. She was transitioned to lovenox injection as a bridge to warfarin. She received teaching on lovenox injections and will follow up in anti-coag clinic for INR checks with a goal 2- 3. We recommend a 3 month course of anticoagulation. Medications: Please refer to EMR for complete list. She was given prescriptions for the followin. Lovenox 70mg BID x16 doses 2. Warfarin 2.5mg QD Follow Up Plan: 1. Referral to anti-coag clinic per PCP, recommend within 1 week 2. Continue lovenox injections until INR therapeutic Physical Exam: Vitals reviewed, stable. Alert and oriented, rrr without m/r/g, lungs clear, abdomen soft, no leg edema or rashes.
[2018-03-18] MEDS ORDERED: ENOXAPARIN 80 MG/0.8 ML SYR SC SCH (11:15)
--- NOTE | 2018-03-18 11:56 | ASMTCMCOM ---
CM Note CM Note Notes: Pts case discussed w/ Dr. Galan. Pt is being d/c'd today. Pt is currently w/ [facility]. CM sent [facility] a resumption of care orders. CM available for changes. Plan: [facility]; PT, RN Date Signed: 03/18/2018 11:55 AM Electronically Signed By:ATIYA Clarke
--- NOTE | 2018-03-18 11:59 | ASDISCHSUM ---
Discharge Information Plan Status:Home with Home Health Medically Cleared to Leave:03/17/2018 Discharge Date:03/17/2018 CM D/C Disposition: ADT D/C Disposition:Home, Routine, Self-Care Projected Discharge Date:03/18/2018 11:00 AM Transportation at D/C: Discharge Delay Reason: Follow-Up Date:03/18/2018 11:00 AM Discharge Slot: Final Diagnosis: Placement Information Referral Type:*Home Health Care Services Referral ID:[id number] Provider Name:[facility] ([facility] Address 1:[address] [address] Address 2: City:[place] Selection Factors: State:[place] Patient Contact Information Contact Name:ОЛЬГАAYDEN Relationship: Address:[address] City:[place] Alternate Phone: State/Zip Code:[place] [address] Email: Financial Information Financial Class:Medicare Primary Plan Desc:MEDICARE OUTPATIENT Primary Plan Number:[id number] Secondary Plan Desc:HUMANA Secondary Plan Number:[id number] Assessment Information LACE LACE Length of stay for Answers: 1 day current admission Acuity / Level of Answers: No Care: Did the patient have an inpatient admission? Comorbidities - select Answers: Opioid dependence all that apply / Chronic pain # of Emergency department Answers: 1-2 visits in the last 6 months Score: 6 Date Signed: 03/18/2018 11:58 AM Electronically Signed By:ATIYA Clarke [facility] CM Progress Note CM Note CM Note Notes: Pts case discussed w/ Dr. Galan. Pt is being d/c'd today. Pt is currently w/ [facility]. CM sent [facility] a resumption of care orders. CM available for changes. Plan: [facility]; PT, RN Date Signed: 03/18/2018 11:55 AM Electronically Signed By:ATIYA Clarke Intervention Information
[2018-03-18] MEDS ORDERED: WARFARIN SODIUM 5 MG TAB PO SCH (16:00)
== END 2018-03-18 13:00 | disposition home health service (06) ==
LOC: F2W 20:45
PROVIDERS: ADMIT Family Medicine; ATTEND Internal Medicine
DX: I26.99 Other pulmonary embolism without acute cor pulmonale (principal); J95.89 Other postprocedural complications and disorders of respiratory system, not elsewhere classified; Z98.1 Arthrodesis status; E78.5 Hyperlipidemia, unspecified
CPT/HCPCS: 71275; 96372; 96374; 96375; 99291; G0378; J1644; J1650; Q9967; 85520-90

== ENCOUNTER 2018-03-19 10:38 | Emergency (ER) | payer OTHER ==
[2018-03-19] MEDS ORDERED: NS 500 ML IV ONE (11:04)
--- NOTE | 2018-03-19 11:07 | EDPHY ---
H & P Stated Complaint: SOB - Personal History Current Tetanus/Diphtheria Vaccine: Yes Current Tetanus Diphtheria and Acellular Pertussis (TDAP): Yes Tetanus Vaccine Date: < 10 YRS - Medical/Surgical History Hx Asthma: No Hx Chronic Respiratory Disease: No Hx Diabetes: No Hx Cardiac Disease: No Hx Renal Disease: No Hx Cirrhosis: No Hx Alcoholism: No Hx HIV/AIDS: No Hx Splenectomy or Spleen Trauma: No Other PMH: 3 shoulder sxs, carpal tunnel sx, HLD,c4-c7 fusion, lamenectomy - Social History Smoking Status: Never smoked Time Seen by Provider: 03/19/18 10:50 HPI/ROS: CHIEF COMPLAINT: Lightheadedness, dyspnea HISTORY OF PRESENT ILLNESS: 77-year-old female postoperative day 7 post cervical fusion C4 through C7 by Dr. Turner Rivas, return to the ER on postoperative day 5 complaining of dyspnea found to have bilateral pulmonary emboli started on Lovenox and heparin , returns to the ER complaining of air hunger, lightheadedness, generalized malaise since last evening. No chest pain. No back pain. Cervical collar still in place with controlled pain with oral analgesia. PRIMARY CARE PROVIDER: REVIEW OF SYSTEMS: 10 systems reviewed and negative with the exception of the elements mentioned in the history of present illness PAST MEDICAL & SURGICAL HISTORY: Postop day [address] Turner Rivas. Recent bilateral pulmonary emboli diagnosis. SOCIAL HISTORY: nonsmoker PHYSICAL EXAM (Prior to examination, patient consented to physical exam, hands were washed and my usual and customary physical exam procedures followed) 1) GENERAL: Well-developed, well-nourished, alert and oriented. Appears to be in no acute distress. 2) HEAD: Normocephalic, atraumatic 3) HEENT: Pupils equal, round, reactive to light bilaterally. Sclera anicteric. Nasopharynx, oropharynx, clear, no lesions. Dry mucous membranes. 4) NECK: Cervical collar in place. 5) LUNGS: Clear auscultation bilaterally, no wheezes, no rhonchi, no retractions. 6) HEART: Regular rate and rhythm, no murmur, no heave, no gallop. 7) ABDOMEN: No guarding, no rebound, no focal tenderness, negative McBurney's, negative Plascencia's, negative Rovsing's, negative peritoneal sign, 8) MUSCULOSKELETAL: Moving all extremities, no focal areas of tenderness, no obvious trauma. No peripheral edema or discoloration. 9) BACK: No CVA tenderness, no midline vertebral tenderness, no fluctuance, no step-off, no obvious trauma, no visual or palpable abnormality. 10) SKIN: No rash, no petechiae. 11) Psychiatric: Patient is oriented X 3, there is no agitation. DIFFERENTIAL DIAGNOSIS: In no particular order including but limited to TN, PE , right heart strain (Debbie,[place]) Constitutional: Initial Vital Signs Temperature (C) 36.7 C 03/19/18 10:52 Heart Rate 87 03/19/18 10:52 Respiratory Rate 16 03/19/18 10:52 Blood Pressure 176/92 H 03/19/18 10:52 O2 Sat (%) 93 03/19/18 10:52 O2 Delivery Mode Room Air O2 (L/minute) 1 Allergies/Adverse Reactions: oxycodone Allergy (Verified 03/19/18 12:04) Itching Home Medications: Medication Instructions Recorded Atorvastatin Calcium [Lipitor 20 20 mg PO HS 02/11/18 mg (*)] HYDROcodone/APAP 10/325 [[place] 1 - 2 tab PO Q4 PRN tab 03/16/18 10/325 (*)] Methocarbamol [Robaxin 750 mg (*)] 750 mg PO QID PRN tab 03/16/18 Enoxaparin [Lovenox 80 MG (*)] 70 mg SQ Q12H #16 syr 03/18/18 Warfarin Sodium [Coumadin 2.5MG 2.5 mg PO DAILY16 #30 tab 03/18/18 (*)] Ondansetron Odt [Zofran Odt] 4 mg PO Q4PRN PRN #10 tab 03/19/18 Medical Decision Making ED Course/Re-evaluation: 12:04 p.m.: I reviewed the patient's old medical records and discussed case Dr. Myriam Lundberg in the ER. Patient has no evidence of right heart strain, no focal infiltrate or pneumothorax on chest x-ray with negative troponin. I consulted with hospitalist service the patient does not feel she can be discharged home, is not feel that she is currently able to care for self adequately. Plan will be admission to hospital with plan for possible short- term rehabilitation. I consulted with hospitalist service, admit to Dr. Braulio Galan 12:44 p.m.: Re-evaluation, patient feeling significantly improved after IV hydration and an IV antiemetic. I have observed her ambulating she is smiling, appears improved would like to be discharged home. At this time I think that this is reasonable decision. I will plan on discharging home with antiemetic, she is more than welcome return to the ER at any point if she does not feel she is able to care for self, she develops dyspnea or any other symptoms that concern her. (Twin [place]) Other Provider: The patient was evaluated and managed by the Physician Stave Block Splitter. I discussed the patient's presentation and course with the midlevel provider with them and agree with the evaluation. My co-signature indicates that I have reviewed this chart and I agree with the findings and plan of care as documented. I am the secondary supervising physician. While in the emergency department, the patient was treated with IV fluids and also received Zofran for nausea. She was much more comfortable after these treatments, not hypoxic, was ambulatory without becoming hypoxic, has already been started on anticoagulants, and wishes to be discharged home. (Myriam Lundberg) - Data Points Laboratory Results: Laboratory Results 03/19/18 10:45 03/19/18 10:45 Medications Given: Discontinued Medications Sodium Chloride (Ns) 500 mls @ 1,000 mls/hr IV EDNOW ONE PRN Reason: Protocol Stop: 03/19/18 11:33 Last Admin: 03/19/18 11:21 Dose: 500 mls Point of Care Test Results: Chemistry 03/19/18 10:53 POC Troponin I 0.00 ng/mL ng/mL (0.00-0.08) Departure - Departure Disposition: Home, Routine, Self-Care Clinical Impression: Nausea Condition: Good Instructions: Acute Nausea and Vomiting (ED) Referrals: Patient,NotPresent [Unknown] - As per Instructions Turner Rivas MD [Medical Doctor] - 1-2 days Prescriptions: Ondansetron Odt [Zofran Odt] 4 mg PO Q4PRN PRN #10 tab PRN Reason: Nausea
[2018-03-19 11:10] LABS: PLATELET COUNT 270 10^3/uL (150-400)
[2018-03-19 11:18] LABS: INR 1.12 (0.83-1.16); PROTIME(PATIENT) 14.6 SEC (12.0-15.0)
[2018-03-19] MEDS ORDERED: ONDANSETRON DISINTEGRATING 4 MG TAB PO PRN (12:47)
[2018-03-19] MEDS ORDERED: ONDANSETRON 4 MG/2 ML VIAL IVP PRN (12:47)
[2018-03-19] MEDS ORDERED: ACETAMINOPHEN 325 MG TAB PO PRN (12:47)
[2018-03-19] MEDS ORDERED: IBUPROFEN 200 MG TAB PO PRN (12:47)
[2018-03-19] MEDS ORDERED: METHOCARBAMOL 750 MG TAB PO PRN (12:49)
[2018-03-19] MEDS ORDERED: HYDROCODONE/APAP 10/325 TAB PO PRN (12:49)
--- NOTE | 2018-03-19 12:52 | PDGENHP ---
History and Physical - History of Present Illness History Information - Allergies/Home Medication List Allergies/Adverse Reactions: oxycodone Allergy (Verified 03/19/18 12:04) Itching Home Medications: Atorvastatin Calcium [Lipitor 20 mg (*)] 20 mg PO HS 02/11/18 [Last Taken ] I have personally reviewed and updated: family history, medical history, social history, surgical history - Past Medical History Additional medical history: acute provoked PE (02/2018), hyperlipidemia, degenerative disc disease - Surgical History Additional surgical history: C4-7 cervical fusion 02/2018 - Family History Positive for: non-pertinent - Social History Smoking Status: Never smoked Alcohol Use: None Drug Use: None Additional social history: Lives with , independent in ADLs Review of Systems Review of Systems: ROS: 10pt was reviewed & negative except for what was stated in HPI & below Physical Exam Physical Exam: Temp Pulse Resp BP Pulse Ox 36.7 C 75 13 132/78 H 98 03/19/18 10:52 03/19/18 12:19 03/19/18 12:19 03/19/18 12:19 03/19/18 12:20 O2 (L/minute) 1 Constitutional: no apparent distress, appears nourished, not in pain Eyes: PERRL, anicteric sclera, EOMI Ears, Nose, Mouth, Throat: moist mucous membranes, hearing normal, ears appear normal, no oral mucosal ulcers Cardiovascular: regular rate and rhythym, no murmur, rub, or gallop, No edema Respiratory: no respiratory distress, no rales or rhonchi, clear to auscultation Gastrointestinal: normoactive bowel sounds, soft, non-tender abdomen, no palpable masses Genitourinary: no bladder fullness, no bladder tenderness Skin: warm, normal color, no rashes or abrasions, no fluctuance, no induration, No mottled Musculoskeletal: full muscle strength, no muscle tenderness, normal joint ROM, no joint effusions Neurologic: AAOx3 Psychiatric: interacting appropriately, not anxious, not encephalopathic, thought process linear Lab Data & Imaging Review 03/19/18 10:45 03/19/18 10:45 WBC 8.04 10^3/uL (3.80-9.50) 03/19/18 10:45 RBC 4.10 10^6/uL (4.18-5.33) L 03/19/18 10:45 Hgb 12.1 g/dL (12.6-16.3) L 03/19/18 10:45 Hct 36.7 % (38.0-47.0) L 03/19/18 10:45 MCV 89.5 fL (81.5-99.8) 03/19/18 10:45 MCH 29.5 pg (27.9-34.1) 03/19/18 10:45 MCHC 33.0 g/dL (32.4-36.7) 03/19/18 10:45 RDW 12.5 % (11.5-15.2) 03/19/18 10:45 Plt Count 270 10^3/uL (150-400) 03/19/18 10:45 MPV 10.3 fL (8.7-11.7) 03/19/18 10:45 Neut % (Auto) 85.2 % (39.3-74.2) H 03/19/18 10:45 Lymph % (Auto) 6.6 % (15.0-45.0) L 03/19/18 10:45 [place] % (Auto) 6.3 % (4.5-13.0) 03/19/18 10:45 Eos % (Auto) 1.0 % (0.6-7.6) 03/19/18 10:45 Baso % (Auto) 0.4 % (0.3-1.7) 03/19/18 10:45 Nucleat RBC Rel Count 0.0 % (0.0-0.2) 03/19/18 10:45 Absolute Neuts (auto) 6.85 10^3/uL (1.70-6.50) H 03/19/18 10:45 Absolute Lymphs (auto) 0.53 10^3/uL (1.00-3.00) L 03/19/18 10:45 Absolute Monos (auto) 0.51 10^3/uL (0.30-0.80) 03/19/18 10:45 Absolute Eos (auto) 0.08 10^3/uL (0.03-0.40) 03/19/18 10:45 Absolute Basos (auto) 0.03 10^3/uL (0.02-0.10) 03/19/18 10:45 Absolute Nucleated RBC 0.00 10^3/uL (0-0.01) 03/19/18 10:45 Immature Gran % 0.5 % (0.0-1.1) 03/19/18 10:45 Immature Gran # 0.04 10^3/uL (0.00-0.10) 03/19/18 10:45 RBC/WBC/PLT Morphology TNP 03/19/18 10:45 Platelet Estimate TNP 03/19/18 10:45 PT 14.6 SEC (12.0-15.0) 03/19/18 10:45 INR 1.12 (0.83-1.16) 03/19/18 10:45 APTT 43.8 SEC (23.0-38.0) H 03/19/18 10:45 Sodium 135 mEq/L (135-145) 03/19/18 10:45 Potassium 4.2 mEq/L (3.5-5.2) 03/19/18 10:45 Chloride 100 mEq/L (97-110) 03/19/18 10:45 Carbon Dioxide 27 mEq/l (22-31) 03/19/18 10:45 Anion Gap 8 mEq/L (6-14) 03/19/18 10:45 BUN 10 mg/dL (7-23) 03/19/18 10:45 Creatinine 0.6 mg/dL (0.6-1.0) 03/19/18 10:45 Estimated GFR > 60 03/19/18 10:45 Glucose 103 mg/dL (70-100) H 03/19/18 10:45 Calcium 8.9 mg/dL (8.5-10.4) 03/19/18 10:45 POC Troponin I 0.00 ng/mL (0.00-0.08) 03/19/18 10:53 Visualized and Interpreted Chest x-ray results: Yes Visualized and Interpreted imaging results: Yes Interpretation: CXR: no focal infiltrate or effusion, normal heart size, c- collar in place, some perihilar fullness c/w enlarged pulmonary arteries ( interp by me) Visualized and Interpreted EKG results: Yes EKG additional interpertation: ECG: NSR, no acute ischemia, possible S1Q3T3 but no RBBB (interp by me) Assessment & Plan Assessment: Nausea (Acute)
[2018-03-19] MEDS ORDERED: ENOXAPARIN 80 MG/0.8 ML SYR SC SCH (13:00)
[2018-03-19 13:49] VITALS: BP 130/68
[2018-03-19] MEDS ORDERED: WARFARIN SODIUM 2.5 MG TAB PO SCH (16:00)
[2018-03-19] MEDS ORDERED: ATORVASTATIN CALCIUM 20 MG TAB PO SCH (21:00)
--- NOTE | 2018-03-20 13:39 | CPEKG ---
Test Reason : OPEN Blood Pressure : / mmHG Vent. Rate : 083 BPM Atrial Rate : 082 BPM P-R Int : 139 ms QRS Dur : 083 ms QT Int : 368 ms P-R-T Axes : 027 -26 011 degrees QTc Int : 433 ms Sinus rhythm Borderline left axis deviation Low voltage, precordial leads Consider anterior infarct Confirmed by Myriam Lundberg ([id number]) on 03/20/2018 1:38:32 PM Referred By: Myriam Lundberg Confirmed By:Myriam Lundberg
== END 2018-03-19 13:33 | disposition home or self-care (01) ==
LOC: EDUNIT# → UNDOADMOB 11:50
DX: R11.0 Nausea (principal); R42 Dizziness and giddiness; R06.09 Other forms of dyspnea; E86.9 Volume depletion, unspecified
CPT/HCPCS: 84484-ER